=== PATIENT | male | born 1985 | race Caucasian/White ===

== ENCOUNTER 2021-05-31 11:27 | Emergency (ER) | payer MEDICAID, SELFPAY ==
[2021-05-31 11:27] VITALS: BP 152/95; PULSE 102; RESP 16; TEMP 36.7; O2SAT 98; BMI 25.0
--- NOTE | 2021-05-31 11:50 | EKG12_ITS ---
Test Reason : PALPITATIONS Blood Pressure : / mmHG Vent. Rate : 100 BPM Atrial Rate : 100 BPM P-R Int : 154 ms QRS Dur : 088 ms QT Int : 326 ms P-R-T Axes : 064 056 042 degrees QTc Int : 420 ms Normal sinus rhythm Normal ECG Confirmed by SCOT CHU, ELENA ([id number]), proposal editor JOSE SEAY ([id number]) on 06/04/2021 10:39:15 AM Referred By: CLEMENTE/CHUCHO Confirmed By:ELENA ELILSON MD
--- NOTE | 2021-05-31 11:50 | RAD_ITS ---
STUDY: X-RAY CHEST REASON FOR EXAM: Male, 35 years old. Palpitations. TECHNIQUE: Single AP portable view of the chest. COMPARISON: None. FINDINGS: EKG electrodes are seen. The lungs are clear and expanded. Scattered calcified granulomas. There is no demonstrated pleural abnormality. Normal size heart. Normal mediastinum and sheree. Normal visualized pulmonary arteries. Normal visualized aortic arch and descending thoracic aorta. Normal visualized thoracic spine. Normal visualized ribs, clavicles, and shoulders. There is no demonstrated abnormality of the visualized soft tissue structures of the upper abdomen. RAD/Chest 1 View (Portable) IMPRESSION: Normal x-ray examination of the chest. Electronically Signed: Akash Rosenberg MD at 12:22 EDT ,
--- NOTE | 2021-05-31 12:05 | EDS_ITS ---
HPI History of Present Illness Chief Complaint: Palpitations Narrative Narrative: 35-year-old male with history of anxiety presenting with palpitations and chest pain. He states that for the last 2 weeks he is having increasing episodes of palpitations and what he feels like his anxiety. He states he is not had anxiety this bad before. He spoke with a friend who has panic disorder and was told this is likely what it is. 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 Patient states that his heart began racing so fast he started having chest pain and became scared. Patient does not have any cardiac disease. He is a smoker but does not drink alcohol. [facility] Medical History Anxiety Home Medications hydroxyzine pamoate [Vistaril] 25 mg PO TID PRN #30 cap 05/31/21 [Rx Last Taken Unknown] Surgical History History of appendectomy Social History Smoking Status: Current every day smoker tobacco type: cigarettes ROS ROS ED Constitutional Constitutional ED: Denies chills, fever(s) or subjective Eyes Eyes: Denies blurry vision or change in vision ENT ENT ED: Denies rhinorrhea or sore throat Cardiovascular Cardiovascular: Reports as per HPI Respiratory/Chest Respiratory/Chest: Denies cough or dyspnea Gastrointestinal Gastrointestinal: Denies abdominal pain or nausea Genitourinary Genitourinary ED: Denies dysuria or hematuria Musculoskeletal Musculoskeletal: Denies arthralgias or myalgias Integumentary Denies rash Neurologic Neurologic: Denies headache(s) or weakness Psychiatric Psychiatric: Reports anxiety; Denies depression EXAM Physical Exam Const Vital Signs: 05/31/21 11:27 05/31/21 11:58 05/31/21 13:53 Temperature 98.1 F Temperature Source Temporal Pulse Rate 102 H 72 Respiratory Rate 16 18 Blood Pressure 152/95 H 112/80 Blood Pressure Mean 114 90 Pulse Ox 98 98 Oxygen Delivery Method Room Air Room Air Room Air 05/31/21 14:22 Temperature Temperature Source Pulse Rate 80 Respiratory Rate 16 Blood Pressure 101/75 Blood Pressure Mean Pulse Ox Oxygen Delivery Method Positive well developed General Appearance ED: well developed and NAD; Negative for pallor HEENT Reports normocephalic, head/scalp atraumatic and moist mucous membranes Eyes PERRL and EOMs intact bilaterally Neck no lymphadenopathy and supple Chest Wall inspection of chest normal and palpation of chest normal Resp normal respiratory effort and clear to auscultation bilaterally Auscultation: Negative for rales, rhonchi or wheezes Cardio regular rate and regular rhythm GI normal to inspection, nondistended, normoactive bowel sounds and non-distended Auscultation: normoactive bowel sounds Palpation: soft Narrative: Deferred Extremity normal to inspection General Extremety ED: Yes edema and tenderness General Extremity: edema Neuro oriented x3 and CN's II-XII intact bilaterally Sensorium / Orientation: alert Motor Exam: strength 5/5 throughout Psych mental status grossly normal Attitude: No agitated Skin no rashes or lesions noted and no wounds General Skin Exam: Negative for jaundice or pallor Heart Score History: Slightly/Non-Suspicious ECG: Normal Age: </= 45 years Risk Factors: 1 or 2 Risk Factors Troponin: >1 - <3 Normal Limit Score: 2 MDM MDM MDM Narrative Medical decision making narrative: Patient presenting with chest pain and palpitations. He himself believes it is probably anxiety. He states has been having money issues recently. EKG is obtained and on my interpretation shows a normal sinus rhythm with a ventricular to 100 bpm without signs of ST elevation or depression. Chest x-ray my interpretation shows no acute cardiopulmonary process the radiologist does agree. CBC and BMP are unremarkable. D-dimer negative. High-sensitivity troponin is less than 3. Delta troponin is the same. Patient's cardiac work-up is ultimately negative. He does have concern for panic attack so he was given information by social work for follow-up for this. He was given Vistaril prescription for as needed anxiety. Patient discharged stable condition. Impression: 1. Chest pain noncardiac 2. Panic attack Lab Data Attestation: I reviewed the patient's lab results. Labs: Laboratory Results - last 24 hr 05/31/21 05/31/21 05/31/21 11:55 11:55 11:55 WBC 9.0 RBC 5.20 Hgb 15.8 Hct 45.3 MCV 87.1 MCH 30.4 MCHC 34.9 RDW Std Deviation 41.7 RDW Coeff of Marleny 13.2 Plt Count 305 MPV 9.9 Immature Gran % (Auto) 0.300 Neut % (Auto) 43.3 L Lymph % (Auto) 46.4 H [place] % (Auto) 7.0 Eos % (Auto) 2.7 Baso % (Auto) 0.3 Absolute Neuts (auto) 3.9 Absolute Lymphs (auto) 4.16 Nucleated RBC % 0 D-Dimer Quant (PE/DVT) < 0.27 L Sodium 139 Potassium 3.8 Chloride 104 Carbon Dioxide 30.0 Anion Gap 5 BUN 15 Creatinine 1.08 Estim Creat Clear Calc 90.11 Est GFR (MDRD) Af Amer 100 Est GFR (MDRD) Non-Af 83 BUN/Creatinine Ratio 13.9 Glucose 68 L Calcium 9.3 Troponin I High Sens < 3 L 05/31/21 13:51 WBC RBC Hgb Hct MCV MCH MCHC RDW Std Deviation RDW Coeff of Marleny Plt Count MPV Immature Gran % (Auto) Neut % (Auto) Lymph % (Auto) [place] % (Auto) Eos % (Auto) Baso % (Auto) Absolute Neuts (auto) Absolute Lymphs (auto) Nucleated RBC % D-Dimer Quant (PE/DVT) Sodium Potassium Chloride Carbon Dioxide Anion Gap BUN Creatinine Estim Creat Clear Calc Est GFR (MDRD) Af Amer Est GFR (MDRD) Non-Af BUN/Creatinine Ratio Glucose Calcium Troponin I High Sens < 3 L Radiography Diagnostic Testing: Clinical Impression(s) from Imaging Studies Chest X-Ray 05/31/21 11:50 IMPRESSION: Normal x-ray examination of the chest. Electronically Signed: Akash Rosenberg MD at 12:22 EDT , Discharge Plan Triage Chief Complaint: Palpitations ED Provider: Luiz Alberts Dx/Rx/DC Orders Instructions: ED Palpitations, ED Panic Attack Prescriptions: New hydroxyzine pamoate [Vistaril] 25 mg capsule 25 mg PO TID PRN (Reason: anxiety) Qty: 30 RF: 0 Primary Care Provider: Care Physician,No Primary Referrals: Wojciech Gregorio MD [STAFF PHYSICIAN] - 3-5 Days Care Physician,No Primary [Primary Care Provider] - Disposition Disposition: Home, Self Care
[2021-05-31 12:07] LABS: Absolute Lymphocyte Count 4.16 X10^3/uL (0.83-4.51); Absolute Neutrophil Count 3.9 X10^3/uL (2.0-7.7); Basophil# 0.03 X10^3/uL; Basophil% 0.3 % (0-1); Eosinophil# 0.24 X10^3/uL; Eosinophils% 2.7 % (0-5); Hematocrit 45.3 % (40-54); Hemoglobin 15.8 g/dL (13.0-16.5); Lymphocyte # 4.16 X10^3/ul (0.83-4.51); Lymphocyte % 46.4 % (19-41); Mean Corp Hgb Conc 34.9 g/dL (32-36); Mean Corpuscular Hgb 30.4 pg (27.0-32.0); Mean Corpuscular Volume 87.1 fL (80-94); Mean Platelet Vol. 9.9 fl (6.2-12.0); Monocyte# 0.63 X10^3/uL; NRBC Flagged by Analyzer 0 % (0-5); Neutrophil # 3.88 X10^3/uL (2.7-7.7); Neutrophil % 43.3 % (47-70); Platelet Count 305 K/mm3 (150-450); RBC Distribution Width CV 13.2 % (11.6-14.6); RBC Distribution Width SD 41.7 fl (35.1-43.9)
[2021-05-31 12:19] LABS: D-Dimer Quantitative (DVT/PE) < 0.27 FEU/ug/m (0.27-0.49)
[2021-05-31 12:28] LABS: Anion Gap 5 (5-15); BUN 15 mg/dL (7-18); BUN/Creat Ratio 13.9 RATIO (10-20); Calcium,Total 9.3 mg/dL (8.5-10.1); Chloride 104 mmol/L (98-107); Creatinine, Serum 1.08 mg/dL (0.70-1.30); EST Glomerular Filtration Rate 83 mL/min (>60); Est Glom Filt Rate - Afr Amer 100 mL/min (>60); Estimated Creatinine Clearance 90.11 ml/min; Glucose 68 mg/dL (74-106); Potassium 3.8 mmol/L (3.5-5.1); Sodium Level 139 mmol/L (136-145); Troponin-I HS < 3 pg/mL (3.0-78.0)
[2021-05-31 13:53] VITALS: BP 112/80; PULSE 72; RESP 18; O2SAT 98
[2021-05-31 14:18] LABS: Troponin-I HS < 3 pg/mL (3.0-78.0)
[2021-05-31 14:22] VITALS: BP 101/75; PULSE 80; RESP 16
--- NOTE | 2021-05-31 16:03 | CM.ED ---
SW Note Referral Source: MD Referral Reason: Anxiety MD requested this life insurance underwriter speak to patient regarding anxiety. Enoch said that he is employed. Patient said that today is the first ever panic attack he had and he indicated it was scary. Patient was educated on Counseling support through [facility] IOP/PHP and community counseling providers. Patient said that he is linked with Bindu at [facility] and she comes to his house. Patient said that he just started his job 2 months ago so does not have [place] for IOP/PHP. Patient said that Bindu is a good support and he feels comfortable calling her and updating her regarding the current presenation to the ED today. Patient was given resources on counseling agencies and [facility] IOP/PHP. Plan: Resources Provided Radha PAIGE
== END 2021-05-31 14:31 | disposition home or self-care (01) ==
PROVIDERS: Emergency Provider Student in an Organized Health Care Education/Training Program; Visit Provider Student in an Organized Health Care Education/Training Program
DX: F41.0 Panic disorder [episodic paroxysmal anxiety] (principal); R07.89 Other chest pain; F17.210 Nicotine dependence, cigarettes, uncomplicated
CPT/HCPCS: 71045; 80048; 84484; 85025; 85379; 93005; 99284; J7030; A4216

== ENCOUNTER 2024-03-08 03:32 | Emergency (ER) | payer MEDICAID, SELFPAY ==
[2024-03-08 03:32] VITALS: BP 146/87; PULSE 79; RESP 18; TEMP 36.5; O2SAT 99; BMI 27.5
--- NOTE | 2024-03-08 03:52 | ED.VIS.DENTA ---
HPI History of Present Illness Chief Complaint: Dental Informant: patient Narrative Narrative: Dental pain that started couple days ago right mandibular molar, swelling right lower face started last night, woke him up in the middle of the night in severe pain and more swelling. No fevers or chills or discharge into his mouth or bleeding. Took Tylenol 6 hours ago but nothing since. [facility] Medical History Anxiety Home Medications ?Medication ?Instructions ?Recorded ?Last Taken ?Type amoxicillin 500 mg tablet 500 mg PO TID #30 tabs 03/08/24 Unknown Rx Allergy/AdvReac Type Severity Reaction Status Date / Time No Known Allergies Allergy Verified 03/08/24 03:32 Surgical History History of appendectomy Social History Smoking Status: Current every day smoker tobacco type: cigarettes ROS ROS ED Constitutional Constitutional ED: Denies chills or fever(s) Eyes Eyes: Denies change in vision or double vision ENT ENT ED: Reports dental pain; Denies sinus pain or throat swelling Cardiovascular Cardiovascular: Denies chest pain or palpitations Respiratory/Chest Respiratory/Chest: Denies cough or dyspnea Integumentary Denies abscess or rash Neurologic Neurologic: Denies headache(s), paresthesias or weakness EXAM Physical Exam Const Vital Signs: 03/08/24 03:32 Temperature 97.7 F L Temperature Source Oral Pulse Rate 79 Respiratory Rate 18 Blood Pressure 146/87 H Blood Pressure Mean 106 Pulse Ox 99 Positive well nourished and well developed General Appearance ED: well developed and NAD HEENT HEENT Narrative: Right jawline swelling and tenderness. Poor dentition right mandibular, tooth #31 has a filling in the middle of it along with significant anterior lateral decay which is tender, as is tooth #29 which has posterior decay down to the gumline. There is a pointing abscess in the gingiva next to this tooth #29. No significant trismus. Face and Sinus: sinuses nontender Throat: posterior oropharynx normal Eyes PERRL and EOMs intact bilaterally Neck no lymphadenopathy and supple Resp normal respiratory effort Neuro oriented x3 and CN's II-XII intact bilaterally Sensorium / Orientation: alert Gait (Neuro): normal gait Psych mental status grossly normal and thought process normal Skin no rashes or lesions noted and no wounds MDM MDM MDM Narrative Medical decision making narrative: Patient was amenable to needle aspiration for abscess, see the procedure note. Tolerated well. Started on amoxicillin given pain medication here, and resources for dental follow-up as well as a prescription for amoxicillin. Procedures Other Procedures Procedure(s): Dental abscess aspiration: Topical 3-second spray of Cetacaine intraorally, followed by placement of a 21-gauge needle directed caudally next to tooth #29, about 1 cc of pus with small amount of blood was aspirated, patient has ice water to swish and spit tolerated well no complications. Discharge Plan Triage Chief Complaint: Dental ED Provider: Winston Wilkinson Dx/Rx/DC Orders Clinical Impression: Dental abscess, Dental decay Instructions: ED Dental Abscess Prescriptions: New amoxicillin 500 mg tablet 500 mg PO TID Qty: 30 0RF Primary Care Provider: Care Physician,No Primary Referrals: Dentist,Your [STAFF PHYSICIAN] - As soon as possible (see attached list as needed) Print Language: Maori Disposition Disposition: Home, Self Care
[2024-03-08] MEDS: AMOXICILLIN 500 MG CAPSULE PO (04:01)
[2024-03-08] MEDS: Naproxen 500 MG Tablet PO (04:01)
[2024-03-08] MEDS: HYDROcodone Bitartrate/Apap 5/325 Tablet PO (04:01)
[2024-03-08 04:03] VITALS: BP 138/96; PULSE 88; RESP 18; TEMP 37.2; O2SAT 98
== END 2024-03-08 04:03 | disposition home or self-care (01) ==
PROVIDERS: Emergency Provider Emergency Medicine; Visit Provider Emergency Medicine
DX: K04.7 Periapical abscess without sinus (principal); K02.7 Dental root caries; F17.210 Nicotine dependence, cigarettes, uncomplicated
CPT/HCPCS: 10160; 41800; 99283